=== PATIENT | female | born 1975 | race Caucasian/White ===

== ENCOUNTER → 2021-11-24 | Outpatient (CLI) | payer OTHER ==
[~2021-11-24] MED LIST: ARMOUR THYROID120 MG PO; B12 PO; IBU800 MG PO; MAGNESIUM400 M2 PO; PEPCID COMPLET1 EACH PO; PROBIOTIC PO; SELENIUM PO; VITAMIN C PO; VITAMIN D3125 MCG PO; ZINC50 M1 PO
[2021-11-24 13:32] LABS: HEMOGLOBIN 13.8 gm/dl (12.3-15.3); RED BLOOD COUNT 4.74 M/UL (4.00-5.10); WHITE BLOOD COUNT 6.9 K/UL (4.5-11.0)
[2021-11-24 13:55] LABS: BUN/CREATININE RATIO 21 (0-10)
== END ==
LOC: OPSV2 11-19 12:00 → EDSTATUS 12:30 → OPSV2 12:30
PROVIDERS: Orthopaedic Surgery
DX: Z01.818 Encounter for other preprocedural examination (principal); M54.12 Radiculopathy, cervical region
CPT/HCPCS: 36415; 71045; 80048; 81001; 85025; 85610; 85730; 87081; 93005

== ENCOUNTER → 2021-11-29 | Outpatient (CLI) | payer BC ==
[~2021-11-29] MED LIST changes: -ARMOUR THYROID120 MG PO; +NP THYROID30 MG PO; +NP THYROID90 MG PO
== END ==
LOC: LAB 18:01
DX: Z01.812 Encounter for preprocedural laboratory examination (principal)
CPT/HCPCS: 86850; 86900; 86901

== ENCOUNTER 2021-12-01 05:53 | Inpatient (IN) | payer OTHER, BC ==
[~2021-12-01] VITALS: Ht 162.6 cm; Wt 71.7 kg
[~2021-12-01 05:53] MED LIST changes: -NP THYROID30 MG PO; -NP THYROID90 MG PO
[2021-12-01 13:19] LABS: HEMOGLOBIN 13.1 gm/dl (12.3-15.3); RED BLOOD COUNT 4.49 M/UL (4.00-5.10); WHITE BLOOD COUNT 11.8 K/UL (4.5-11.0)
[2021-12-01 13:40] LABS: BUN/CREATININE RATIO 14 (0-10)
[2021-12-01] MEDS ORDERED: NP THYROID90 MG PO (14:02)
[2021-12-01] MEDS ORDERED: NP THYROID30 MG PO (15:05)
[2021-12-02 03:22] LABS: HEMOGLOBIN 12.7 gm/dl (12.3-15.3); RED BLOOD COUNT 4.37 M/UL (4.00-5.10)
[2021-12-02 03:23] LABS: WHITE BLOOD COUNT 15.3 K/UL (4.5-11.0)
[2021-12-02 03:39] LABS: BUN/CREATININE RATIO 14 (0-10)
[2021-12-02] MEDS ORDERED: ROXICODONE5 MG PO (06:18)
== END 2021-12-02 14:19 | disposition home health service (06) | DRG 472 ==
LOC: OR 05:53 → CCU 13:57 → OR 14:00 → CCU 14:00
PROVIDERS: ADMIT Orthopaedic Surgery
PROC: 01N10ZZ Release Cervical Nerve, Open Approach (ICD-10-PCS; 2021-12-01)
PROC: 0RG20A0 Fusion of 2 or more Cervical Vertebral Joints with Interbody Fusion Device, Anterior Approach, Anterior Column, Open Approach (ICD-10-PCS; principal; 2021-12-01 07:30)
PROC: 0RB30ZZ Excision of Cervical Vertebral Disc, Open Approach (ICD-10-PCS; 2021-12-01 07:30)
DX: M48.02 Spinal stenosis, cervical region (principal); M47.12 Other spondylosis with myelopathy, cervical region; K21.9 Gastro-esophageal reflux disease without esophagitis; Z20.822 Contact with and (suspected) exposure to COVID-19; E03.9 Hypothyroidism, unspecified; M54.12 Radiculopathy, cervical region; Z96.612 Presence of left artificial shoulder joint; Z98.890 Other specified postprocedural states; Z79.899 Other long term (current) drug therapy
CPT/HCPCS: 36415; 72040; 76000; 80048; 83735; 84703; 85027; C1713; C1762; J0690; J1040; J1100; J1170; J2001; J2250; J2370; J2405; J2704; J3010; J3370; J7120